=== PATIENT | male | born 1995 | race American Indian/Alaskan Native ===

== ENCOUNTER 2021-11-10 18:56 | Emergency (ER) | payer MEDICAID, MEDICARE ==
[2021-11-10] MEDS ORDERED: ZIPRASIDONE MESYLATE 20 MG VIAL IM ONE ×2 (18:58→23:02)
--- NOTE | 2021-11-10 19:07 | Emergency Department Report ---
ED Psych HPI - General Stated Complaint: PSYCHIATRIC EPISODE Time Seen by Provider: 11/10/21 18:57 - History of Present Illness Initial Comments: Patient is 26 years old male with history of schizophrenia. Patient brought to the emergency room via EMS from [facility] for mental health evaluation. EMS reported that staff reported that patient became agitated and started repeating ONE PHRASE, AM SORRY,AM SORRY. Upon arrival to the ER patient was agitated and obviously responding to internal stimuli. Patient received Geodon 20 mg IM for chemical restraint. MD Complaint: altered mental status -: Sudden, This afternoon Associated Psychiatric Symptoms: racing thoughts History of same: Yes Quality: constant - Related Data Home Medications Medication Instructions Recorded Confirmed Last Taken Benztropine [Cogentin] 1 mg PO HS 06/16/13 06/16/13 06/15/13 Olanzapine [Zyprexa] 10 mg PO QAM 06/16/13 06/16/13 06/16/13 Olanzapine [Zyprexa] 20 mg PO HS 06/16/13 06/16/13 06/15/13 PARoxetine [Paxil] 20 mg DAILY 06/16/13 06/16/13 06/16/13 Vit B12/Levomefolate/Vit B6/B2 1 tab DAILY 06/16/13 06/16/13 06/16/13 [Cerefolin Caplet] clonazePAM [KlonoPIN] 0.5 mg PO BID 06/16/13 06/16/13 06/16/13 Previous Rx's Medication Instructions Recorded Last Taken Type Doxepin [SINEquan] 10 mg PO QHS #30 capsule 11/12/21 Unknown Rx OLANzapine [ZyPREXA] 10 mg PO DAILY #30 tablet 11/12/21 Unknown Rx PARoxetine [Paxil] 10 mg PO DAILY #30 tablet 11/12/21 Unknown Rx Allergies Allergy/AdvReac Type Severity Reaction Status Date / Time No Known Allergies Allergy Verified 06/16/13 15:43 ED Review of Systems ROS: Stated complaint: PSYCHIATRIC EPISODE Other details as noted in HPI Comment: Unobtainable due to pts medical conditions ED Past Medical Hx - Past Medical History Hx Psychiatric Treatment: Yes (schizophrenia/bipolar) - Social History Smoking Status: Never Smoker Substance Use Type: None - Medications Home Medications: Home Medications Medication Instructions Recorded Confirmed Last Taken Type Benztropine [Cogentin] 1 mg PO HS 06/16/13 06/16/13 06/15/13 History Olanzapine [Zyprexa] 10 mg PO QAM 06/16/13 06/16/13 06/16/13 History Olanzapine [Zyprexa] 20 mg PO HS 06/16/13 06/16/13 06/15/13 History PARoxetine [Paxil] 20 mg DAILY 06/16/13 06/16/13 06/16/13 History Vit B12/Levomefolate/Vit B6/B2 1 tab DAILY 06/16/13 06/16/13 06/16/13 History [Cerefolin Caplet] clonazePAM [KlonoPIN] 0.5 mg PO BID 06/16/13 06/16/13 06/16/13 History Doxepin [SINEquan] 10 mg PO QHS #30 capsule 11/12/21 Unknown Rx OLANzapine [ZyPREXA] 10 mg PO DAILY #30 tablet 11/12/21 Unknown Rx PARoxetine [Paxil] 10 mg PO DAILY #30 tablet 11/12/21 Unknown Rx ED Physical Exam - General General appearance: alert, in no apparent distress, other (AGITATED) - Head Head exam: Present: atraumatic, normocephalic, normal inspection - Eye Eye exam: Present: normal appearance - ENT ENT exam: Present: normal exam, normal orophraynx, mucous membranes moist - Neck Neck exam: Present: normal inspection, full ROM. Absent: tenderness, mening ismus - Respiratory Respiratory exam: Present: normal lung sounds bilaterally - Cardiovascular Cardiovascular Exam: Present: regular rate, normal rhythm, normal heart sounds - GI/Abdominal GI/Abdominal exam: Present: soft, normal bowel sounds. Absent: distended, tenderness, guarding, rebound, rigid, organomegaly, mass, bruit, pulsatile mass, hernia - Extremities Exam Extremities exam: Present: normal inspection, full ROM, normal capillary refill. Absent: tenderness - Back Exam Back exam: Present: normal inspection, full ROM. Absent: CVA tenderness (R), CVA tenderness (L) - Neurological Exam Neurological exam: Present: alert - Psychiatric Psychiatric exam: Present: agitated, manic - Skin Skin exam: Present: warm, intact, normal color ED Course Vital Signs 11/10/21 11/10/21 11/11/21 19:43 20:49 06:01 Temperature 97.9 F 97.5 F L Pulse Rate 120 H 103 H Respiratory 16 18 16 Rate Blood Pressure Blood Pressure 157/100 147/83 [Right] O2 Sat by Pulse 99 100 100 Oximetry 11/11/21 11/11/21 11/12/21 08:16 18:29 04:11 Temperature 97.2 F L 97.7 F Pulse Rate 87 80 Respiratory 18 15 16 Rate Blood Pressure 124/85 Blood Pressure 124/85 123/53 [Right] O2 Sat by Pulse 100 100 100 Oximetry 11/12/21 11/12/21 09:29 09:38 Temperature 97.8 F Pulse Rate 87 Respiratory 18 Rate Blood Pressure Blood Pressure 111/73 [Right] O2 Sat by Pulse 97 99 Oximetry ED Medical Decision Making - Lab Data Result diagrams: 11/10/21 20:32 11/10/21 20:32 - Medical Decision Making Patient is 26 years old male with history of schizophrenia. Patient brought to the emergency room via EMS from [facility] for mental health evaluation. EMS reported that staff reported that patient became agitated and started repeating ONE PHRASE, AM SORRY,AM SORRY. Upon arrival to the ER patient was agitated and obviously responding to internal stimuli. Patient received Geodon 20 mg IM for chemical restraint. Patient has been evaluated by our psychiatric team and he spent several days in the ER. Today on November 12 I reexamined the patient again patient stated that he is feeling fine and he is calm. Psychiatric team recommended discharge and outpatient follow-up. Patient denied any suicidal or homicidal ideation. No visual or auditory hallucination. Patient is medically and psychiatrically stable for discharge. Critical care attestation.: If time is entered above; I have spent that time in minutes in the direct care of this critically ill patient, excluding procedure time. ED Disposition Clinical Impression: Acute psychosis Disposition: HOME / SELF CARE / HOMELESS Is pt being admited?: No Condition: Stable Instructions: Schizophrenia Prescriptions: Doxepin [SINEquan] 10 mg PO QHS #30 capsule PARoxetine [Paxil] 10 mg PO DAILY #30 tablet OLANzapine [ZyPREXA] 10 mg PO DAILY #30 tablet
[2021-11-10 20:47] LABS: Basophils # (Auto) 0.1 K/mm3 (0.0-0.1); Basophils % (Auto) 0.8 % (0.0-1.8); Eosinophils % (Auto) 0.2 % (0.0-4.3); Hematocrit 39.7 % (35.5-45.6); Hemoglobin 12.6 gm/dl (11.8-15.2); Lymphocytes # (Auto) 2.5 K/mm3 (1.2-5.4); Lymphocytes % (Auto) 26.3 % (13.4-35.0); Mean Corpuscular HGB Conc 32 % (32-34); Mean Corpuscular Volume 74 fl (84-94); Monocytes # (Auto) 0.7 K/mm3 (0.0-0.8); Monocytes % (Auto) 7.4 % (0.0-7.3); Platelet Count 143 K/mm3 (140-440); Red Blood Count 5.39 M/mm3 (3.65-5.03); Red Cell Distribution Width 14.5 % (13.2-15.2)
[2021-11-10 21:05] LABS: BUN/Creatinine Ratio 10; Blood Urea Nitrogen 10 mg/dL (9-20); Calcium 9.4 mg/dL (8.4-10.2); Hemolysis Index 14
[2021-11-11] MEDS ORDERED: diphenhydrAMINE 50 MG/ML VIAL ONE (02:42)
[2021-11-11] MEDS ORDERED: LORazepam 2 MG/ML VIAL ONE (02:42)
[2021-11-11] MEDS ORDERED: ZIPRASIDONE MESYLATE 20 MG VIAL IM PRN (11:00)
--- NOTE | 2021-11-11 11:34 | Consultation ---
History of Present Illness - Reason for Consult Consult date: 11/11/21 Reason for consult: psychosis - History of Present Psychiatric Illness HPI: Patient is 26 years old male with history of schizophrenia. Patient brought to the emergency room via EMS from [facility] for mental health evaluation. EMS reported that staff reported that patient became agitated and started repeating ONE PHRASE, AM SORRY,AM SORRY. Upon arrival to the ER patient was agitated and obviously responding to internal stimuli. Patient received Geodon 20 mg IM for chemical restraint. The patient was seen today. He is in the seclusion room. He is cooperative during the evaluation. The patient does appear anxious, and is responding to internal stimuli. He says he's been off his meds for about a month. The patient says he takes zyprexa and propranolol. The patient also appears to be confused, as he tells me that his mom brought him hear. It is documented the patient was brought from [facility] by EMS. The patient says he is hearing voices telling him "not to hurt himself." He denies SI/HI but verbalizes "feeling scared." He denies any illicit drug use, alcohol or nicotine. PSYCH HISTORY Diagnoses: Schizophrenia Suicide attempts or Self-harm behavior: No Prior psychiatric hospitalizations: Yes Substance Abuse history: Denies Previous psychiatric medications tried: Zyprexa and propranolol Outpatient treatment: Yes PAST MEDICAL HISTORY: Family Psychiatric History: None reported or documented SOCIAL HISTORY Marital Status: Single Living Arrangements: retirement Employment Status: Unemployed Access to guns/weapons: Denies Education: high school History of Abuse: Denies Legal History: none MENTAL STATUS EXAMINATION General Appearance and Behavior: Age appropriate, good hygiene, wearing appropriate clothes, calm, cooperative, polite Cooperation: Participating Psychomotor Behavior: unremarkable and within normal limits Mood: depressed Affect and affective range: congruent with mood Thought Process: circumstantial, responding to internal stimuli Thought Content: hallucinations Speech: Normal volume, Regular rate and rhythm, Suicidal Ideation: Denies Homicidal Ideation: Denies Hallucinations: Auditory Delusions: None elicited Impulse Control: Limited Insight and Judgment: Limited insight and poor judgment, Memory: Normal Attention: attentive Orientation: Alert, oriented Assessment and Plan (1) Schizophrenia Treatment Plan 1013 Paxil 10mg po daily Zyprexa 10mg po daily Doxepin 10mg po qhs Geodon 20mg IM q5h prn agitation PSYCHOTHERAPY: Supportive psychotherapy provided MEDICAL: Per primary team DELIRIUM PRECAUTIONS: Please re-orient patient frequently, keep lights on during the day, and minimize benzodiazepines and opiates as these medications could worsen patient's confusion. SIZER HAND: Per medical team DISPOSITION: recommend acute psychiatric inpatient treatment. Will follow. Thank you for the consult. Case staffed with Dr. Mckeon Medications and Allergies Allergies Allergy/AdvReac Type Severity Reaction Status Date / Time No Known Allergies Allergy Verified 06/16/13 15:43 Home Medications Medication Instructions Recorded Confirmed Last Taken Type Benztropine [Cogentin] 1 mg PO HS 06/16/13 06/16/13 06/15/13 History Olanzapine [Zyprexa] 10 mg PO QAM 06/16/13 06/16/13 06/16/13 History Olanzapine [Zyprexa] 20 mg PO HS 06/16/13 06/16/13 06/15/13 History PARoxetine [Paxil] 20 mg DAILY 06/16/13 06/16/13 06/16/13 History Vit B12/Levomefolate/Vit B6/B2 1 tab DAILY 06/16/13 06/16/13 06/16/13 History [Cerefolin Caplet] clonazePAM [KlonoPIN] 0.5 mg PO BID 06/16/13 06/16/13 06/16/13 History Mental Status Exam - Vital signs Last Vital Signs Temp 97.2 F L 11/11/21 08:16 Pulse 87 11/11/21 08:16 Resp 18 11/11/21 08:16 BP 124/85 11/11/21 08:16 Pulse Ox 100 11/11/21 08:16 Results Result Diagrams: 11/10/21 20:32 11/10/21 20:32 Abnormal lab results 11/10/21 11/10/21 11/10/21 Range/Units 20:32 20:32 20:32 RBC 5.39 H (3.65-5.03) M/mm3 MCV 74 L (84-94) fl MCH 23 L (28-32) pg Clinton % (Auto) 7.4 H (0.0-7.3) % Glucose 107 H (75-100) mg/dL Salicylates < 0.3 L (2.8-20.0) mg/dL Acetaminophen (10.0-30.0) ug/mL 11/10/21 Range/Units 20:32 RBC (3.65-5.03) M/mm3 MCV (84-94) fl MCH (28-32) pg Clinton % (Auto) (0.0-7.3) % Glucose (75-100) mg/dL Salicylates (2.8-20.0) mg/dL Acetaminophen 5.0 L (10.0-30.0) ug/mL All other labs normal.
[2021-11-11] MEDS: PARoxetine 10 MG TAB PO SCH (12:59)
[2021-11-11] MEDS ORDERED: DOXEPIN 10 MG CAP PO SCH (22:00)
[2021-11-12 09:39] VITALS: BP 111/73
[2021-11-12] MEDS: PARoxetine 10 MG TAB PO SCH (09:43)
--- NOTE | 2021-11-12 11:05 | Progress Note ---
Subjective - Reason for Consult Consult date: 11/12/21 Reason for consult: psychosis - Chief Complaint Chief complaint: The patient was seen today. He is much more calm today. He is cooperative. He says he slept well. The patient says he no longer feels scares or paranoid. He says "I feel better today." He denies SI/HI or hallucinations of any kind. The patient says he lives at a custodial. He says he likes to play soccer. REVIEW OF SYSTEMS Constitutional: Negative for weight loss ENT: Negative for stridor Respiratory: Negative for cough or hemoptysis All other systems reviewed and are negative MENTAL STATUS EXAMINATION General Appearance and Behavior: Age appropriate, good hygiene, wearing appropriate clothes, calm, cooperative, polite Cooperation: Participating Psychomotor Behavior: unremarkable and within normal limits Mood: better Affect and affective range: congruent with mood Thought Process: goal directed Thought Content: None Speech: Normal volume, Regular rate and rhythm, Suicidal Ideation: Denies Homicidal Ideation: Denies Hallucinations: Denies Delusions: None elicited Impulse Control: Limited Insight and Judgment: Limited insight and poor judgment, Memory: Normal Attention: attentive Orientation: Alert, oriented Assessment and Plan (1) Schizophrenia Treatment Plan d/c 1013 Paxil 10mg po daily Zyprexa 10mg po daily Doxepin 10mg po qhs PSYCHOTHERAPY: Supportive psychotherapy provided MEDICAL: Per primary team DELIRIUM PRECAUTIONS: Please re-orient patient frequently, keep lights on during the day, and minimize benzodiazepines and opiates as these medications could worsen patient's confusion. 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 The patient understands that if SI/HI are to arise he is to seek immediate assistance [employer] to give all necessary resources Will sign off. Thank you for the consult. Case staffed with Dr. Mckeon Mental Status Exam - Vital signs Last Vital Signs Temp 97.8 F 11/12/21 09:38 Pulse 87 11/12/21 09:38 Resp 18 11/12/21 09:38 BP 111/73 11/12/21 09:38 Pulse Ox 99 11/12/21 09:38
== END 2021-11-12 14:59 | disposition home or self-care (01) ==
LOC: ED 18:56 → EEVIPCON 18:56 → ED 11-12 14:59
DX: F23 Brief psychotic disorder (principal); F31.9 Bipolar disorder, unspecified
CPT/HCPCS: 36415; 80048; 85025; 96372; 99284; J1200; J2060; J3486; 80320; G0480

== ENCOUNTER 2021-11-14 19:52 | Emergency (ER) | payer MEDICAID ==
--- NOTE | 2021-11-14 20:58 | Emergency Department Report ---
HPI - HPI HPI: Room 12 C The patient is a 26-year-old male present with a chief complaint of schizophrenia. The patient states he came to the emergency department to have his schizophrenia evaluated. Patient denies have any specific complaints. Patient states he has been compliant with his medication. Patient denies suicidal or homicidal ideation. Patient denies visual auditory hallucinations <BRANDAN RIVERA - Last Filed: 11/14/21 22:35> <SONALI PHILLIPS - Last Filed: 11/15/21 08:04> - General Chief Complaint: Psych Time Seen by Provider: 11/14/21 20:44 ED Past Medical Hx - Past Medical History Previous Medical History?: Yes Hx Psychiatric Treatment: Yes (schizophrenia/bipolar) - Surgical History Past Surgical History?: No - Family History Family history: no significant - Social History Smoking Status: Never Smoker Substance Use Type: None (Denies illicit drug), Alcohol (Frequently) <BRANDAN RIVERA - Last Filed: 11/14/21 22:35> <SONALI PHILLIPS - Last Filed: 11/15/21 08:04> - Medications Home Medications: Home Medications Medication Instructions Recorded Confirmed Last Taken Type Benztropine [Cogentin] 1 mg PO HS 06/16/13 06/16/13 06/15/13 History Olanzapine [Zyprexa] 10 mg PO QAM 06/16/13 06/16/13 06/16/13 History Olanzapine [Zyprexa] 20 mg PO HS 06/16/13 06/16/13 06/15/13 History PARoxetine [Paxil] 20 mg DAILY 06/16/13 06/16/13 06/16/13 History Vit B12/Levomefolate/Vit B6/B2 1 tab DAILY 06/16/13 06/16/13 06/16/13 History [Cerefolin Caplet] clonazePAM [KlonoPIN] 0.5 mg PO BID 06/16/13 06/16/13 06/16/13 History Doxepin [SINEquan] 10 mg PO QHS #30 capsule 11/12/21 Unknown Rx OLANzapine [ZyPREXA] 10 mg PO DAILY #30 tablet 11/12/21 Unknown Rx PARoxetine [Paxil] 10 mg PO DAILY #30 tablet 11/12/21 Unknown Rx ED Review of Systems ROS: Stated complaint: METAL BREAKDOWN Other details as noted in HPI Constitutional: no symptoms reported Eyes: denies: eye pain ENT: denies: throat pain Respiratory: no symptoms reported Cardiovascular: denies: chest pain Endocrine: no symptoms reported Gastrointestinal: denies: abdominal pain Genitourinary: denies: dysuria Musculoskeletal: denies: back pain Neurological: denies: headache Psychiatric: denies: auditory hallucinations, visual hallucinations, homicidal thoughts, suicidal thoughts <BRANDAN RIVERA - Last Filed: 11/14/21 22:35> ROS: Stated complaint: METAL BREAKDOWN Other details as noted in HPI <SONALI PHILLIPS - Last Filed: 11/15/21 08:04> Physical Exam - Physical Exam Vital Signs: Vital Signs 11/14/21 20:07 Temperature 98 F Pulse Rate 105 H Respiratory 18 Rate Blood Pressure 140/90 O2 Sat by Pulse 100 Oximetry Physical Exam: GENERAL: The patient is well-developed well-nourished male sitting in chair eating food not appearing to be in acute distress. [] HEENT: Normocephalic. Atraumatic. Extraocular motions are intact. Patient has moist mucous membranes. NECK: Supple. Trachea midline CHEST/LUNGS: Clear to auscultation. There is no respiratory distress noted. HEART/CARDIOVASCULAR: Regular. There is no tachycardia. There is no gallop rub or murmur. ABDOMEN: Abdomen is soft, nontender. Patient has normal bowel sounds. There is no abdominal distention. SKIN: There is no rash. There is no edema. There is no diaphoresis. NEURO: The patient is awake, alert, and oriented. The patient is cooperative. The patient has no focal neurologic deficits. The patient has normal speech. GCS 15 MUSCULOSKELETAL: There is no evidence of acute injury. <BRANDAN RIVERA - Last Filed: 11/14/21 22:35> - Physical Exam Vital Signs: Vital Signs 11/14/21 20:07 Temperature 98 F Pulse Rate 105 H Respiratory 18 Rate Blood Pressure 140/90 O2 Sat by Pulse 100 Oximetry <SONALI PHILLIPS - Last Filed: 11/15/21 08:04> ED Course Vital Signs 11/14/21 20:07 Temperature 98 F Pulse Rate 105 H Respiratory 18 Rate Blood Pressure 140/90 O2 Sat by Pulse 100 Oximetry - Reevaluation(s) Reevaluation #1: 11/14/21 22:35 Patient refusing labs <BRANDAN RIVERA - Last Filed: 11/14/21 22:35> Vital Signs 11/14/21 20:07 Temperature 98 F Pulse Rate 105 H Respiratory 18 Rate Blood Pressure 140/90 O2 Sat by Pulse 100 Oximetry <SONALI PHILLIPS - Last Filed: 11/15/21 08:04> ED Medical Decision Making - Differential Diagnosis Schizophrenia <BRANDAN RIVERA - Last Filed: 11/14/21 22:35> - Medical Decision Making Patient has been evaluated by our psychiatric team. Patient recommended for ou tpatient follow-up and discharge. Patient is currently denying any suicidal or homicidal ideation. No visual or auditory hallucination. Patient is medically and psychiatrically stable for discharge. <SONALI PHILLIPS - Last Filed: 11/15/21 08:04> Critical care attestation.: If time is entered above; I have spent that time in minutes in the direct care o f this critically ill patient, excluding procedure time. <BRANDAN RIVERA - Last Filed: 11/14/21 22:35> Critical care attestation.: If time is entered above; I have spent that time in minutes in the direct care of this critically ill patient, excluding procedure time. <SONALI PHILLISP - Last Filed: 11/15/21 08:04> ED Disposition <BRANDAN RIVERA - Last Filed: 11/14/21 22:35> Is pt being admited?: No <SONALI PHILLIPS - Last Filed: 11/15/21 08:04> Clinical Impression: Schizophrenia Disposition: 01 HOME / SELF CARE / HOMELESS Condition: Stable Instructions: Schizophrenia Referrals: LIZ LARSON MD [Primary Care Provider] - 3-5 Days
[2021-11-15 08:33] VITALS: BP 138/86
== END 2021-11-15 08:44 | disposition home or self-care (01) ==
LOC: ED 19:52
DX: F20.9 Schizophrenia, unspecified (principal)
CPT/HCPCS: 99283

== ENCOUNTER 2021-11-15 12:21 | Emergency (ER) | payer MEDICAID ==
[2021-11-15] MEDS ORDERED: ZIPRASIDONE MESYLATE 20 MG VIAL IM ONE ×2 (12:32→20:55)
--- NOTE | 2021-11-15 12:38 | Emergency Department Report ---
ED Psych HPI - General Stated Complaint: MH Time Seen by Provider: 11/15/21 12:32 - History of Present Illness Initial Comments: Patient is 26 years old male with known history of schizophrenia. Patient was just released from emergency room after has been evaluated by our psychiatric team and recommended discharge. Patient was fine this morning and soon as he woke the hospital premises patient started yelling and shouting phrases" AM REALLY SORRY, AM REALLY SORRY. Similar to his previous presentation. Patient became very agitated and have to be physically restrained and then received Geodon 20 mg IM and brought in seclusion. Complaint: altered mental status - Related Data Home Medications Medication Instructions Recorded Confirmed Last Taken Benztropine [Cogentin] 1 mg PO HS 06/16/13 11/16/21 06/15/13 Olanzapine [Zyprexa] 10 mg PO QAM 06/16/13 11/16/21 06/16/13 Olanzapine [Zyprexa] 20 mg PO HS 06/16/13 11/16/21 11/07/21 PARoxetine [Paxil] 20 mg DAILY 06/16/13 11/16/21 06/16/13 Vit B12/Levomefolate/Vit B6/B2 1 tab DAILY 06/16/13 11/16/21 06/16/13 [Cerefolin Caplet] clonazePAM [KlonoPIN] 0.5 mg PO BID 06/16/13 11/16/21 06/16/13 Clozapine 800 mg PO QHS 11/16/21 11/16/21 11/14/21 800 mg Depakote ER 1,750 mg PO QHS 11/16/21 11/16/21 11/07/21 Previous Rx's Medication Instructions Recorded Last Taken Type Doxepin [SINEquan] 10 mg PO QHS #30 capsule 11/12/21 Unknown Rx OLANzapine [ZyPREXA] 10 mg PO DAILY #30 tablet 11/12/21 Unknown Rx PARoxetine [Paxil] 10 mg PO DAILY #30 tablet 11/12/21 Unknown Rx Allergies Allergy/AdvReac Type Severity Reaction Status Date / Time No Known Allergies Allergy Verified 06/16/13 15:43 ED Review of Systems ROS: Stated complaint: MH Other details as noted in HPI Comment: Unobtainable due to pts medical conditions ED Past Medical Hx - Past Medical History Hx Psychiatric Treatment: Yes (schizophrenia/bipolar) - Social History Smoking Status: Never Smoker Substance Use Type: None (Denies illicit drug), Alcohol (Frequently) - Medications Home Medications: Home Medications Medication Instructions Recorded Confirmed Last Taken Type Benztropine [Cogentin] 1 mg PO HS 06/16/13 11/16/21 06/15/13 History Olanzapine [Zyprexa] 10 mg PO QAM 06/16/13 11/16/21 06/16/13 History Olanzapine [Zyprexa] 20 mg PO HS 06/16/13 11/16/21 11/07/21 History PARoxetine [Paxil] 20 mg DAILY 06/16/13 11/16/21 06/16/13 History Vit B12/Levomefolate/Vit B6/B2 1 tab DAILY 06/16/13 11/16/21 06/16/13 History [Cerefolin Caplet] clonazePAM [KlonoPIN] 0.5 mg PO BID 06/16/13 11/16/21 06/16/13 History Doxepin [SINEquan] 10 mg PO QHS #30 capsule 11/12/21 11/16/21 Unknown Rx OLANzapine [ZyPREXA] 10 mg PO DAILY #30 tablet 11/12/21 11/16/21 Unknown Rx PARoxetine [Paxil] 10 mg PO DAILY #30 tablet 11/12/21 11/16/21 Unknown Rx Clozapine 800 mg PO QHS 11/16/21 11/16/21 11/14/21 History 800 mg Depakote ER 1,750 mg PO QHS 11/16/21 11/16/21 11/07/21 History ED Physical Exam - General General appearance: alert, other (Severely agitated.) - Head Head exam: Present: atraumatic, normocephalic, normal inspection - Eye Eye exam: Present: normal appearance - ENT ENT exam: Present: normal exam, normal orophraynx, mucous membranes moist - Neck Neck exam: Present: normal inspection, full ROM. Absent: tenderness, meningismus - Respiratory Respiratory exam: Present: normal lung sounds bilaterally - Cardiovascular Cardiovascular Exam: Present: regular rate, normal rhythm, normal heart sounds - GI/Abdominal GI/Abdominal exam: Present: soft, normal bowel sounds. Absent: distended, tenderness, guarding, rebound, rigid, organomegaly, mass, bruit, pulsatile mass, hernia - Back Exam Back exam: Present: normal inspection, full ROM. Absent: CVA tenderness (R), CVA tenderness (L) - Neurological Exam Neurological exam: Present: alert, altered, CN II-XII intact, normal gait, reflexes normal. Absent: motor sensory deficit - Psychiatric Psychiatric exam: Present: agitated, manic - Skin Skin exam: Present: warm, intact, normal color ED Course Vital Signs 11/16/21 11/16/21 11/16/21 12:26 12:33 19:58 Temperature 97.8 F Pulse Rate 109 H Respiratory 18 Rate Blood Pressure 130/84 [Left] O2 Sat by Pulse 97 100 99 Oximetry 11/17/21 11/17/21 11/17/21 09:00 13:05 20:49 Temperature 98.3 F Pulse Rate 108 H 117 H Respiratory 18 18 18 Rate Blood Pressure 149/90 140/89 [Left] O2 Sat by Pulse 100 99 99 Oximetry 11/17/21 11/18/21 11/19/21 21:00 11:23 04:02 Temperature 98.2 F Pulse Rate 92 H Respiratory 20 16 Rate Blood Pressure 134/79 [Left] O2 Sat by Pulse 98 98 100 Oximetry 11/19/21 09:07 Temperature 97.7 F Pulse Rate 84 Respiratory 17 Rate Blood Pressure 142/88 [Left] O2 Sat by Pulse 100 Oximetry ED Medical Decision Making - Lab Data Result diagrams: 11/15/21 12:32 11/15/21 12:32 Critical care attestation.: If time is entered above; I have spent that time in minutes in the direct care of this critically ill patient, excluding procedure time. ED Disposition Clinical Impression: Schizophrenia Disposition: 01 HOME / SELF CARE / HOMELESS Is pt being admited?: No Condition: Stable Instructions: Schizophrenia Additional Instructions: Professional and Agency Contacts To help Resolve Crises(25/01) [place] Crisis Line: 1-643-223-946 Suicide Prevention Line: Crisis Text Line: [place] [address] Emergency: 911 Outpatient COMMUNITY Behavioral Health Resources: [place]: [facility] [address] [place], [place] [address] [facility] [address] [place] [address] [place]: [facility] - [address] [place] [address] Wednesday thru Wednesday - 8am - 5pm [place]: [facility] Address: [address], [place] [address] [place]: [facility] Address: [address] [place], [place] [address] Wednesday thru Wednesday- 7am-2pm [facility] Address: [address] [place], [place] [address] Wednesday thru Wednesday: 8:30AM-5PM Referrals: PRIMARY CAREMD [Primary Care Provider] - 3-5 Days
[2021-11-16] MEDS ORDERED: LORazepam 2 MG/ML VIAL IV ONE (06:40)
[2021-11-16] MEDS ORDERED: HALOPERIDOL LACTATE 5 MG/1 ML INJ IM ONE (06:40)
[2021-11-16] MEDS ORDERED: diphenhydrAMINE 50 MG/ML VIAL IV ONE (06:42)
--- NOTE | 2021-11-16 10:54 | Consultation ---
History of Present Illness - Reason for Consult Consult date: 11/16/21 Reason for consult: Agitation - History of Present Psychiatric Illness The patient is a 26 year old male with history of schizophrenia who was readmitted for agitation. In my encounter with the patient, he presents with disorganized thoughts and flight of ideas. PAST PSYCHIATRIC HISTORY: PAST MEDICAL HISTORY: None reported or document Family Psychiatric History: None reported or documented SOCIAL HISTORY REVIEW OF SYSTEMS Constitutional: Negative for weight loss ENT: Negative for stridor Respiratory: Negative for cough or hemoptysis All other systems reviewed and are negative MENTAL STATUS EXAMINATION Diagnoses: Schizophrenia Treatment Plan Continue Zyprexa 10mg po bid PSYCHOTHERAPY: Supportive psychotherapy provided MEDICAL: Per primary team DELIRIUM PRECAUTIONS: Please re-orient patient frequently, keep lights on during the day, and minimize benzodiazepines and opiates as these medications could worsen patient's confusion. 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 Will follow. Thank you for the consult. Case staffed with Dr. Mckeon Medications and Allergies Medications and Allergies Medications and Allergies Allergies Allergy/AdvReac Type Severity Reaction Status Date / Time No Known Allergies Allergy Verified 06/16/13 15:43 Home Medications Medication Instructions Recorded Confirmed Last Taken Type Benztropine [Cogentin] 1 mg PO HS 06/16/13 11/16/21 06/15/13 History Olanzapine [Zyprexa] 10 mg PO QAM 06/16/13 11/16/21 06/16/13 History Olanzapine [Zyprexa] 20 mg PO HS 06/16/13 11/16/21 11/07/21 History PARoxetine [Paxil] 20 mg DAILY 06/16/13 11/16/21 06/16/13 History Vit B12/Levomefolate/Vit B6/B2 1 tab DAILY 06/16/13 11/16/21 06/16/13 History [Cerefolin Caplet] clonazePAM [KlonoPIN] 0.5 mg PO BID 06/16/13 11/16/21 06/16/13 History Doxepin [SINEquan] 10 mg PO QHS #30 capsule 11/12/21 11/16/21 Unknown Rx OLANzapine [ZyPREXA] 10 mg PO DAILY #30 tablet 11/12/21 11/16/21 Unknown Rx PARoxetine [Paxil] 10 mg PO DAILY #30 tablet 11/12/21 11/16/21 Unknown Rx Clozapine 800 mg PO QHS 11/16/21 11/16/21 11/14/21 History 800 mg Depakote ER 1,750 mg PO QHS 11/16/21 11/16/21 11/07/21 History Results All other labs normal.
--- NOTE | 2021-11-16 12:01 | Event Note ---
Date: 11/16/21 Diagnoses: Schizophrenia Treatment Plan Continue Zyprexa 10mg po bid PSYCHOTHERAPY: Supportive psychotherapy provided MEDICAL: Per primary team DELIRIUM PRECAUTIONS: Please re-orient patient frequently, keep lights on during the day, and minimize benzodiazepines and opiates as these medications could worsen patient's confusion. 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 Will follow. Thank you for the consult. Case staffed with Dr. Mckeon I Have seen the patient myself and patient remains hemodynamically stable and afebrile; appreciate psychiatry's recommendation. Torie WOLF
[2021-11-17] MEDS ORDERED: ZIPRASIDONE MESYLATE 20 MG VIAL IM NR (08:41)
[2021-11-17] MEDS ORDERED: ZIPRASIDONE MESYLATE 20 MG VIAL IM PRN (11:00)
--- NOTE | 2021-11-17 11:22 | Progress Note ---
Subjective - Reason for Consult Consult date: 11/17/21 Reason for consult: psychosis - Chief Complaint Chief complaint: The patient was seen today. The continues to be disorganized and responding to internal stimuli. REVIEW OF SYSTEMS MENTAL STATUS EXAMINATION Diagnoses: (1)Bipolar disorder Treatment Plan 1013 Continue home meds Haldol 5mg IM BID PSYCHOTHERAPY: Supportive psychotherapy provided MEDICAL: Per primary team DELIRIUM PRECAUTIONS: Please re-orient patient frequently, keep lights on during the day, and minimize benzodiazepines and opiates as these medications could worsen patient's confusion. 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 Will follow. Thank you for the consult. Case staffed with Dr. Mckeon Medications and Allergies Medications and Allergies Mental Status Exam Mental Status Exam - Vital signs Last Vital Signs Temp 97.8 F 11/16/21 19:58 Pulse 109 H 11/16/21 19:58 Resp 18 11/16/21 19:58 BP 130/84 11/16/21 19:58 Pulse Ox 99 11/16/21 19:58
--- NOTE | 2021-11-17 11:43 | Emergency Department Report ---
Blank Doc - Documentation Documentation: S: Patient reportedly agitated and pacing this morning requiring Geodon. O: Vital Signs - 8 hr 11/17/21 11/17/21 09:00 13:05 Pulse Rate 108 H Respiratory 18 18 Rate Blood Pressure 149/90 [Left] O2 Sat by Pulse 100 99 Oximetry 8: Bipolar disorder PE: 1013/awaiting inpatient psych
[2021-11-17 13:39] LABS: Basophils # (Auto) 0.1 K/mm3 (0.0-0.1); Basophils % (Auto) 0.7 % (0.0-1.8); Eosinophils % (Auto) 0.5 % (0.0-4.3); Hematocrit 38.8 % (35.5-45.6); Hemoglobin 12.3 gm/dl (11.8-15.2); Lymphocytes # (Auto) 2.1 K/mm3 (1.2-5.4); Lymphocytes % (Auto) 24.9 % (13.4-35.0); Mean Corpuscular HGB Conc 32 % (32-34); Mean Corpuscular Volume 73 fl (84-94); Monocytes # (Auto) 1.2 K/mm3 (0.0-0.8); Platelet Count 160 K/mm3 (140-440); Red Cell Distribution Width 15.2 % (13.2-15.2)
[2021-11-17 13:51] LABS: BUN/Creatinine Ratio 19; Blood Urea Nitrogen 17 mg/dL (9-20); Calcium 9.6 mg/dL (8.4-10.2); Hemolysis Index 4
[2021-11-17] MEDS ORDERED: clonazePAM 0.5 MG TAB PO SCH (22:00)
[2021-11-17] MEDS ORDERED: DIVALPROEX DR 500 MG TAB PO SCH (22:00)
[2021-11-17] MEDS ORDERED: HALOPERIDOL LACTATE 5 MG/1 ML INJ IM SCH (22:00)
[2021-11-18] MEDS: BENZTROPINE 1 MG TAB PO SCH ×2 (05:53→22:00)
[2021-11-18] MEDS: DOXEPIN 10 MG CAP PO SCH ×2 (05:53→22:00)
[2021-11-18] MEDS: clonazePAM 0.5 MG TAB PO SCH ×3 (05:53→22:00)
[2021-11-18] MEDS: DIVALPROEX DR 500 MG TAB PO SCH ×3 (05:53→22:00)
--- NOTE | 2021-11-18 12:54 | Emergency Department Report ---
Blank Doc - Documentation Documentation: S: Patient pacing otherwise no events reported overnight O: Vital Signs - 8 hr 11/18/21 11:23 Temperature 98.2 F Pulse Rate 92 H Respiratory 20 Rate Blood Pressure 134/79 [Left] O2 Sat by Pulse 98 Oximetry A: Bipolar disorder PE: 1013/awaiting inpatient psych
[2021-11-19 09:09] VITALS: BP 142/88
--- NOTE | 2021-11-19 09:12 | Progress Note ---
Subjective - Reason for Consult Consult date: 11/19/21 Reason for consult: Schizophrenia - Chief Complaint Chief complaint: The patient was seen today. The is calm and eating breakfast. Spoke with patient's mother Mrs Kenny Hurt @ [phone] who is in agreement to discharge the patient since Clozaril is non formulary and can be given at the skilled nursing under the care of his psychiatrist. REVIEW OF SYSTEMS MENTAL STATUS EXAMINATION Diagnoses: (1)Bipolar disorder Treatment Plan [id number] Continue home meds PSYCHOTHERAPY: Supportive psychotherapy provided MEDICAL: Per primary team DELIRIUM PRECAUTIONS: Please re-orient patient frequently, keep lights on during the day, and minimize benzodiazepines and opiates as these medications could worsen patient's confusion. 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 Will sign off. Thank you for the consult. Case staffed with Dr. Mckeon Medications and Allergies Medications and Allergies Mental Status Exam Mental Status Exam - Vital signs Last Vital Signs Temp 98.2 F 11/18/21 11:23 Pulse 92 H 11/18/21 11:23 Resp 16 11/19/21 04:02 BP 134/79 11/18/21 11:23 Pulse Ox 100 11/19/21 04:02
[2021-11-19] MEDS: DIVALPROEX DR 500 MG TAB PO SCH (10:05)
[2021-11-19] MEDS: clonazePAM 0.5 MG TAB PO SCH (10:05)
--- NOTE | 2021-11-19 16:17 | Event Note ---
Date: 11/19/21 (12:00) S: no issues overnight; no new complaints this morning. Patient [id number] a few days ago with acute psychosis. Has a hx of Schizophrenia. Was seen by psych today who recommend discharging home. O: Gen: in nad, awake, alert HEENT: MMM; airway patent Resp: good air entry, nml I:E, CTAB, no use of ZAKI Heart: RRR; no rub or gallop Ext: no LE edema; non tender calvesw; Psych: nml affect; denies SI, HI A/P: - schizophrenia - dc home on his home to continue his clozapine per psych. ED Disposition Disposition: HOME / SELF CARE / HOMELESS Is pt being admited?: No Does the pt Need Aspirin: No Condition: Stable Additional Instructions: Professional and Agency Contacts To help Resolve Crises(25/01) [place] Crisis Line: 7-459-311-693 Suicide Prevention Line: Crisis Text Line: Text START to 561798 Emergency: 911 Outpatient COMMUNITY Behavioral Health Resources: [facility]: [facility] [address] [place], [place] [address] [facility] [address] [place] [address] SUPPLY: [facility] - [address] [place] [address] Wednesday thru Wednesday - 8am - 5pm [facility] Address: [address] [place] [address] [facility]: [facility] Address: [address] [place] [address] Wednesday thru Wednesday- 7am-2pm [facility] Address: [address] [place] [address] Wednesday thru Wednesday: 8:30AM-5PM Referrals: PRIMARY CARE, [Primary Care Provider] - 3-5 Days Time of Disposition: 16:17
== END 2021-11-19 17:38 | disposition home or self-care (01) ==
LOC: ED 12:21
DX: R41.82 Altered mental status, unspecified (principal); F20.9 Schizophrenia, unspecified; Z20.822 Contact with and (suspected) exposure to COVID-19
CPT/HCPCS: 36415; 80048; 85025; 96372; 96374; 99284; J1630; J2060; J3486; U0003; 80320; 99283; G0480

== ENCOUNTER 2021-11-25 12:39 | Emergency (ER) | payer MEDICAID ==
[2021-11-25] MEDS ORDERED: diphenhydrAMINE 50 MG/ML VIAL ONE (12:58)
[2021-11-25] MEDS ORDERED: LORazepam 2 MG/ML VIAL ONE (12:58)
[2021-11-25] MEDS ORDERED: HALOPERIDOL LACTATE 5 MG/1 ML INJ ONE (12:58)
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
[2021-11-25] MEDS ORDERED: diphenhydrAMINE 50 MG/ML VIAL IM ONE (13:30)
[2021-11-25] MEDS ORDERED: HALOPERIDOL LACTATE 5 MG/1 ML INJ IM ONE (13:30)
[2021-11-25] MEDS ORDERED: LORazepam 2 MG/ML VIAL IM ONE (13:30)
[2021-11-25 14:05] LABS: Basophils % (Auto) 0.5 % (0.0-1.8); Eosinophils % (Auto) 0.2 % (0.0-4.3); Hematocrit 37.1 % (35.5-45.6); Hemoglobin 11.6 gm/dl (11.8-15.2); Lymphocytes # (Auto) 0.9 K/mm3 (1.2-5.4); Lymphocytes % (Auto) 13.9 % (13.4-35.0); Mean Corpuscular HGB Conc 31 % (32-34); Mean Corpuscular Volume 73 fl (84-94); Monocytes # (Auto) 0.6 K/mm3 (0.0-0.8); Monocytes % (Auto) 8.3 % (0.0-7.3); Platelet Count 226 K/mm3 (140-440); Red Blood Count 5.05 M/mm3 (3.65-5.03); Red Cell Distribution Width 15.2 % (13.2-15.2)
[2021-11-25 14:34] LABS: Alanine Aminotransferase 25 units/L (7-56); Albumin 4.6 g/dL (3.9-5); BUN/Creatinine Ratio 11; Blood Urea Nitrogen 10 mg/dL (9-20); Calcium 9.1 mg/dL (8.4-10.2); Hemolysis Index 7
[2021-11-25] MEDS: LORazepam 2 MG/ML VIAL IV PRN (15:00)
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
[2021-11-25 16:28] LABS: Bacteria,Urine 1+ /HPF (Negative); Bilirubin,Urine NEG (Negative); Blood,Urine NEG (Negative); Color,Urine Yellow (Yellow); Protein,Urine <15 mg/dL mg/dL (Negative); Urobilinogen,Urine < 2.0 mg/dL (<2.0)
[2021-11-25 16:41] LABS: Amphetamine Screen,Urine Negative; Benzodiazepines Screen,Urine Negative; Cannabinoid Screen,Urine Negative; Cocaine Screen,Urine Negative; Methadone Screen,Urine Negative; Opiate Screen,Urine Negative
[2021-11-25] MEDS ORDERED: FLUCONAZOLE 200 MG TAB PO ONE (16:48)
--- NOTE | 2021-11-26 12:49 | Event Note ---
Date: 11/26/21 The patient was evaluated in the emergency department for symptoms described in the history of present illness. He/she was evaluated in the context of the global COVID-19 pandemic, which necessitated consideration that the patient might be at risk for infection with the virus that causes COVID-19. Institutional protocols and algorithms that pertain to the evaluation of patients at risk for COVID-19 are in a state of rapid change based on information released by regulatory bodies including the CDC and federal and state organizations. These policies and algorithms were followed during the patient's care in the emergency department. Please note that these policies, procedures and recommendations changed on a rapid basis. Laboratory studies, vital signs, nursing documentation, ER documentation, and psychiatric documentation are reviewed and appreciated. Nursing team reports no acute events this morning or concerns. The patient is awake and not in any acute distress. The patient was deemed medically suitable for psychiatric disposition and placement during his initial ER evaluation. The patient continues to remain medically suitable for psychiatric placement and disposition. He is currently pending psychiatric placement. Vital Signs 11/25/21 11/25/21 11/25/21 12:48 13:04 13:36 Temperature 98.1 F 98.3 F 98.8 F Pulse Rate 100 H 88 Respiratory 16 18 18 Rate Blood Pressure Blood Pressure 138/88 [Left] Blood Pressure 138/83 [Right] O2 Sat by Pulse 100 99 100 Oximetry 11/25/21 11/25/21 11/25/21 13:46 14:00 14:18 Temperature Pulse Rate 95 H 101 H Respiratory 21 21 Rate Blood Pressure 132/80 125/84 134/85 Blood Pressure [Left] Blood Pressure [Right] O2 Sat by Pulse 100 78 L Oximetry 11/25/21 11/25/21 11/26/21 14:36 18:15 10:05 Temperature 98.1 F 97.2 F L Pulse Rate 94 H 89 Respiratory 16 18 Rate Blood Pressure 144/85 Blood Pressure [Left] Blood Pressure 125/76 134/83 [Right] O2 Sat by Pulse 98 97 Oximetry Lab Results 11/25/21 11/25/21 11/25/21 Range/Units 13:39 13:39 13:39 WBC 6.8 (4.5-11.0) K/mm3 RBC 5.05 H (3.65-5.03) M/mm3 Hgb 11.6 L (11.8-15.2) gm/dl Hct 37.1 (35.5-45.6) % MCV 73 L (84-94) fl MCH 23 L (28-32) pg MCHC 31 L (32-34) % RDW 15.2 (13.2-15.2) % Plt Count 226 (140-440) K/mm3 Lymph % (Auto) 13.9 (13.4-35.0) % [place] % (Auto) 8.3 H (0.0-7.3) % Eos % (Auto) 0.2 (0.0-4.3) % Baso % (Auto) 0.5 (0.0-1.8) % Lymph # (Auto) 0.9 L (1.2-5.4) K/mm3 Storey # (Auto) 0.6 (0.0-0.8) K/mm3 Eos # (Auto) 0.0 (0.0-0.4) K/mm3 Baso # (Auto) 0.0 (0.0-0.1) K/mm3 Seg Neutrophils % 77.1 H (40.0-70.0) % Seg Neutrophils # 5.2 (1.8-7.7) K/mm3 Sodium 141 (137-145) mmol/L Potassium 3.7 (3.6-5.0) mmol/L Chloride 105.9 (98-107) mmol/L Carbon Dioxide 24 (22-30) mmol/L Anion Gap 15 mmol/L BUN 10 (9-20) mg/dL Creatinine 0.9 (0.8-1.3) mg/dL Estimated GFR > 60 ml/min BUN/Creatinine Ratio 11 % Glucose 94 (75-100) mg/dL Calcium 9.1 (8.4-10.2) mg/dL Total Bilirubin 0.40 (0.1-1.2) mg/dL AST 24 (5-40) units/L ALT 25 (7-56) units/L Alkaline Phosphatase 67 (35-129) units/L Total Protein 7.0 (6.3-8.2) g/dL Albumin 4.6 (3.9-5) g/dL Albumin/Globulin Ratio 1.9 % Urine Color (Yellow) Urine Turbidity (Clear) Urine pH (5.0-7.0) Ur Specific [place] (1.003-1.030) Urine Protein (Negative) mg/dL Urine Glucose (UA) (Negative) mg/dL Urine Ketones (Negative) mg/dL Urine Blood (Negative) Urine Nitrite (Negative) Urine Bilirubin (Negative) Urine Urobilinogen (<2.0) mg/dL Ur Leukocyte Esterase (Negative) Urine WBC (Auto) (0.0-6.0) /HPF Urine RBC (Auto) (0.0-6.0) /HPF Urine Bacteria (Auto) (Negative) /HPF Urine Yeast (Budding) /HPF Salicylates < 0.3 L (2.8-20.0) mg/dL Urine Opiates Screen Urine Methadone Screen Acetaminophen (10.0-30.0) ug/mL Ur Barbiturates Screen Valproic Acid 74.6 (50-100) ug/mL Ur Phencyclidine Scrn Ur Amphetamines Screen U Benzodiazepines Scrn Urine Cocaine Screen U Marijuana (THC) Screen Drugs of Abuse Note Plasma/Serum Alcohol (0-0.07) % SARS-CoV-2 (PCR) (Negative) 11/25/21 11/25/21 11/25/21 Range/Units 13:39 13:39 Unknown WBC (4.5-11.0) K/mm3 RBC (3.65-5.03) M/mm3 Hgb (11.8-15.2) gm/dl Hct (35.5-45.6) % MCV (84-94) fl MCH (28-32) pg MCHC (32-34) % RDW (13.2-15.2) % Plt Count (140-440) K/mm3 Lymph % (Auto) (13.4-35.0) % Storey % (Auto) (0.0-7.3) % Eos % (Auto) (0.0-4.3) % Baso % (Auto) (0.0-1.8) % Lymph # (Auto) (1.2-5.4) K/mm3 Storey # (Auto) (0.0-0.8) K/mm3 Eos # (Auto) (0.0-0.4) K/mm3 Baso # (Auto) (0.0-0.1) K/mm3 Seg Neutrophils % (40.0-70.0) % Seg Neutrophils # (1.8-7.7) K/mm3 Sodium (137-145) mmol/L Potassium (3.6-5.0) mmol/L Chloride (98-107) mmol/L Carbon Dioxide (22-30) mmol/L Anion Gap mmol/L BUN (9-20) mg/dL Creatinine (0.8-1.3) mg/dL Estimated GFR ml/min BUN/Creatinine Ratio % Glucose (75-100) mg/dL Calcium (8.4-10.2) mg/dL Total Bilirubin (0.1-1.2) mg/dL AST (5-40) units/L ALT (7-56) units/L Alkaline Phosphatase (35-129) units/L Total Protein (6.3-8.2) g/dL Albumin (3.9-5) g/dL Albumin/Globulin Ratio % Urine Color Yellow (Yellow) Urine Turbidity Slightly-cloudy (Clear) Urine pH 8.0 H (5.0-7.0) Ur Specific [place] 1.013 (1.003-1.030) Urine Protein <15 mg/dl (Negative) mg/dL Urine Glucose (UA) Neg (Negative) mg/dL Urine Ketones Tr (Negative) mg/dL Urine Blood Neg (Negative) Urine Nitrite Neg (Negative) Urine Bilirubin Neg (Negative) Urine Urobilinogen < 2.0 (<2.0) mg/dL Ur Leukocyte Esterase Neg (Negative) Urine WBC (Auto) 5.0 (0.0-6.0) /HPF Urine RBC (Auto) 19.0 (0.0-6.0) /HPF Urine Bacteria (Auto) 1+ (Negative) /HPF Urine Yeast (Budding) 2+ /HPF Salicylates (2.8-20.0) mg/dL Urine Opiates Screen Urine Methadone Screen Acetaminophen 5.0 L (10.0-30.0) ug/mL Ur Barbiturates Screen Valproic Acid (50-100) ug/mL Ur Phencyclidine Scrn Ur Amphetamines Screen U Benzodiazepines Scrn Urine Cocaine Screen U Marijuana (THC) Screen Drugs of Abuse Note Plasma/Serum Alcohol < 0.01 (0-0.07) % SARS-CoV-2 (PCR) (Negative) 11/25/21 11/26/21 Range/Units Unknown 11:05 WBC (4.5-11.0) K/mm3 RBC (3.65-5.03) M/mm3 Hgb (11.8-15.2) gm/dl Hct (35.5-45.6) % MCV (84-94) fl MCH (28-32) pg MCHC (32-34) % RDW (13.2-15.2) % Plt Count (140-440) K/mm3 Lymph % (Auto) (13.4-35.0) % Storey % (Auto) (0.0-7.3) % Eos % (Auto) (0.0-4.3) % Baso % (Auto) (0.0-1.8) % Lymph # (Auto) (1.2-5.4) K/mm3 [place]y # (Auto) (0.0-0.8) K/mm3 Eos # (Auto) (0.0-0.4) K/mm3 Baso # (Auto) (0.0-0.1) K/mm3 Seg Neutrophils % (40.0-70.0) % Seg Neutrophils # (1.8-7.7) K/mm3 Sodium (137-145) mmol/L Potassium (3.6-5.0) mmol/L Chloride (98-107) mmol/L Carbon Dioxide (22-30) mmol/L Anion Gap mmol/L BUN (9-20) mg/dL Creatinine (0.8-1.3) mg/dL Estimated GFR ml/min BUN/Creatinine Ratio % Glucose (75-100) mg/dL Calcium (8.4-10.2) mg/dL Total Bilirubin (0.1-1.2) mg/dL AST (5-40) units/L ALT (7-56) units/L Alkaline Phosphatase (35-129) units/L Total Protein (6.3-8.2) g/dL Albumin (3.9-5) g/dL Albumin/Globulin Ratio % Urine Color (Yellow) Urine Turbidity (Clear) Urine pH (5.0-7.0) Ur Specific [place] (1.003-1.030) Urine Protein (Negative) mg/dL Urine Glucose (UA) (Negative) mg/dL Urine Ketones (Negative) mg/dL Urine Blood (Negative) Urine Nitrite (Negative) Urine Bilirubin (Negative) Urine Urobilinogen (<2.0) mg/dL Ur Leukocyte Esterase (Negative) Urine WBC (Auto) (0.0-6.0) /HPF Urine RBC (Auto) (0.0-6.0) /HPF Urine Bacteria (Auto) (Negative) /HPF Urine Yeast (Budding) /HPF Salicylates (2.8-20.0) mg/dL Urine Opiates Screen Negative Urine Methadone Screen Negative Acetaminophen (10.0-30.0) ug/mL Ur Barbiturates Screen Negative Valproic Acid (50-100) ug/mL Ur Phencyclidine Scrn Negative Ur Amphetamines Screen Negative U Benzodiazepines Scrn Negative Urine Cocaine Screen Negative U Marijuana (THC) Screen Negative Drugs of Abuse Note Disclamer Plasma/Serum Alcohol (0-0.07) % SARS-CoV-2 (PCR) Negative (Negative)
--- NOTE | 2021-11-26 13:01 | Consultation ---
History of Present Illness - Reason for Consult Consult date: 11/26/21 Reason for consult: paranoia - History of Present Psychiatric Illness The patient was seen today. He was brought to the ER after jumping out of the car and running down the street. During my evaluation the patient is calm and cooperative. He's a/o x 3. The patient says he has a history of paranoid schizophrenia. He says he "gets paranoid sometimes." The patient says he's been feeling like this for about a year. He says he did discuss this with his psychiatrist, and his doctor suggested that he have his blood drawn. The patient denies SI/HI or hallucinations, he says "it's none of that. I just get paranoid sometimes." I spoke to mom to get collateral. The mom is very versed on the patient's medications and mental health. Mom says the patient takes Clozaril, Depakote ER and Ingrezza. She says these medications are the only meds that pretty much work for the patient overall. She says the patient has been on pretty much all the medications out there with no success. She says the patient needs something prn. I recommend Klonopin as needed to her. Mom says the patient was on klonpin and it works very well for him, she says but he became addicted to it and it took three years to get him off. I suggested olanzapine prn in addition to the clozaril. Mom is in agreement with this. She says inpatient treatment is absolutely not the best course of action for Jeremy, because she states he's spent a period of "2 years in inpatient on and off." She says he stayed in [place] for 3 months, and they still had to call her to ask her what to do about her son. The mother says she's well capable of managing Jeremy's mental illness. She says he has an appointment with his outpatient psychiatrist on December 09. She says she will discuss the changes with him. Discussed this plan with Dr. Mckeon who agrees. PSYCH HISTORY Diagnoses: Schizophrenia Suicide attempts or Self-harm behavior: No Prior psychiatric hospitalizations: Yes Substance Abuse history: Denies Previous psychiatric medications tried: Zyprexa and propranolol Outpatient treatment: Yes PAST MEDICAL HISTORY: Family Psychiatric History: None reported or documented SOCIAL HISTORY Marital Status: Single Living Arrangements: custodial Employment Status: Unemployed Access to guns/weapons: Denies Education: high school History of Abuse: Denies Legal History: none MENTAL STATUS EXAMINATION General Appearance and Behavior: Age appropriate, good hygiene, wearing appropriate clothes, calm, cooperative, polite Cooperation: Participating Psychomotor Behavior: unremarkable and within normal limits Mood: better Affect and affective range: congruent with mood Thought Process: circumstantial, responding to internal stimuli Thought Content: Denies Speech: Normal volume, Regular rate and rhythm, Suicidal Ideation: Denies Homicidal Ideation: Denies Hallucinations: Denies Delusions: None elicited Impulse Control: Limited Insight and Judgment: Limited insight and poor judgment, Memory: Normal Attention: attentive Orientation: Alert, oriented Assessment and Plan (1) Schizophrenia Treatment Plan d/c 1013 Olanzapine 5mg po prn psychosis Please give the patient first dose prior to discharge Continue home medications PSYCHOTHERAPY: Supportive psychotherapy provided MEDICAL: Per primary team DELIRIUM PRECAUTIONS: Please re-orient patient frequently, keep lights on during the day, and minimize benzodiazepines and opiates as these medications could worsen patient's confusion. TRANSPLANT REGISTERED NURSE: Per medical team DISPOSITION: Do not recommend acute psychiatric inpatient treatment. Will sign off. Thank you for the consult. Case staffed with Dr. Mckeon Medications and Allergies Allergies Allergy/AdvReac Type Severity Reaction Status Date / Time No Known Allergies Allergy Verified 06/16/13 15:43 Home Medications Medication Instructions Recorded Confirmed Last Taken Type Benztropine [Cogentin] 1 mg PO HS 06/16/13 11/16/21 06/15/13 History Olanzapine [Zyprexa] 10 mg PO QAM 06/16/13 11/16/21 06/16/13 History Olanzapine [Zyprexa] 20 mg PO HS 06/16/13 11/16/21 11/07/21 History PARoxetine [Paxil] 20 mg DAILY 06/16/13 11/16/21 06/16/13 History Vit B12/Levomefolate/Vit B6/B2 1 tab DAILY 06/16/13 11/16/21 06/16/13 History [Cerefolin Caplet] clonazePAM [KlonoPIN] 0.5 mg PO BID 06/16/13 11/16/21 06/16/13 History Doxepin [SINEquan] 10 mg PO QHS #30 capsule 11/12/21 11/16/21 Unknown Rx OLANzapine [ZyPREXA] 10 mg PO DAILY #30 tablet 11/12/21 11/16/21 Unknown Rx PARoxetine [Paxil] 10 mg PO DAILY #30 tablet 11/12/21 11/16/21 Unknown Rx Clozapine 800 mg PO QHS 11/16/21 11/16/21 11/14/21 History 800 mg Depakote ER 1,750 mg PO QHS 11/16/21 11/16/21 11/07/21 History Active Meds: Active Medications Lorazepam (Lorazepam 2 Mg/Ml Vial) 1 mg IV ONCE PRN PRN Reason: Agitation Last Admin: 11/25/21 15:00 Dose: 1 mg Mental Status Exam - Vital signs Last Vital Signs Temp 97.2 F L 11/26/21 10:05 Pulse 89 11/26/21 10:05 Resp 18 11/26/21 10:05 BP 134/83 11/26/21 10:05 Pulse Ox 97 11/26/21 10:05 Results Result Diagrams: 11/25/21 13:39 11/25/21 13:39 Abnormal lab results 11/25/21 11/25/21 11/25/21 Range/Units 13:39 13:39 13:39 RBC 5.05 H (3.65-5.03) M/mm3 Hgb 11.6 L (11.8-15.2) gm/dl MCV 73 L (84-94) fl MCH 23 L (28-32) pg MCHC 31 L (32-34) % [place] % (Auto) 8.3 H (0.0-7.3) % Lymph # (Auto) 0.9 L (1.2-5.4) K/mm3 Seg Neutrophils % 77.1 H (40.0-70.0) % Urine pH (5.0-7.0) Salicylates < 0.3 L (2.8-20.0) mg/dL Acetaminophen 5.0 L (10.0-30.0) ug/mL 11/25/21 Range/Units Unknown RBC (3.65-5.03) M/mm3 Hgb (11.8-15.2) gm/dl MCV (84-94) fl MCH (28-32) pg MCHC (32-34) % [place] % (Auto) (0.0-7.3) % Lymph # (Auto) (1.2-5.4) K/mm3 Seg Neutrophils % (40.0-70.0) % Urine pH 8.0 H (5.0-7.0) Salicylates (2.8-20.0) mg/dL Acetaminophen (10.0-30.0) ug/mL All other labs normal.
[2021-11-26] MEDS: LORazepam 2 MG/ML VIAL IV PRN (13:37)
[2021-11-26 20:39] VITALS: BP 131/75
== END 2021-11-26 19:31 | disposition home or self-care (01) ==
LOC: EEVIPCON 12:39 → ED 12:39
DX: F20.9 Schizophrenia, unspecified (principal); S40.011A Contusion of right shoulder, initial encounter; Z20.822 Contact with and (suspected) exposure to COVID-19; X58.XXXA Exposure to other specified factors, initial encounter; Y93.89 Activity, other specified; Y92.89 Other specified places as the place of occurrence of the external cause; Y99.8 Other external cause status; F10.20 Alcohol dependence, uncomplicated
CPT/HCPCS: 36415; 73030; 80053; 80164; 80307; 81001; 85025; 96372; 96374; 99285; J1200; J1630; J2060; U0003; 80320; G0480

== ENCOUNTER 2021-12-06 15:30 | Emergency (ER) | payer MEDICAID ==
--- NOTE | 2021-12-06 16:14 | Emergency Department Report ---
ED Psych HPI - General Chief Complaint: Psych Stated Complaint: PSYCHOTIC BREAK Time Seen by Provider: 12/06/21 16:00 Source: patient, EMS Mode of arrival: Ambulatory - History of Present Illness Initial Comments: 26-year-old male with a history of schizophrenia and bipolar who now presents with anxiety and depression that is been going on for a while. Patient reported that he has not been taking his medication for a while. When asked to be specific he said he does not know. Patient denies any fall or trauma to the brain. Patient also reports some suicidal ideation without any specific plan. No other modifying or associated factors reported. - Related Data Home Medications Medication Instructions Recorded Confirmed Last Taken Benztropine [Cogentin] 1 mg PO HS 06/16/13 11/16/21 06/15/13 Olanzapine [Zyprexa] 10 mg PO QAM 06/16/13 11/16/21 06/16/13 Olanzapine [Zyprexa] 20 mg PO HS 06/16/13 11/16/21 11/07/21 PARoxetine [Paxil] 20 mg DAILY 06/16/13 11/16/21 06/16/13 Vit B12/Levomefolate/Vit B6/B2 1 tab DAILY 06/16/13 11/16/21 06/16/13 [Cerefolin Caplet] clonazePAM [KlonoPIN] 0.5 mg PO BID 06/16/13 11/16/21 06/16/13 Clozapine 800 mg PO QHS 11/16/21 11/16/21 11/14/21 800 mg Depakote ER 1,750 mg PO QHS 11/16/21 11/16/21 11/07/21 Previous Rx's Medication Instructions Recorded Last Taken Type Doxepin [SINEquan] 10 mg PO QHS #30 capsule 11/12/21 Unknown Rx OLANzapine [ZyPREXA] 10 mg PO DAILY #30 tablet 11/12/21 Unknown Rx PARoxetine [Paxil] 10 mg PO DAILY #30 tablet 11/12/21 Unknown Rx OLANZapine [Olanzapine] 5 mg PO DAILY PRN #30 11/26/21 Unknown Rx Allergies Allergy/AdvReac Type Severity Reaction Status Date / Time No Known Allergies Allergy Verified 12/06/21 15:34 ED Review of Systems ROS: Stated complaint: PSYCHOTIC BREAK Other details as noted in HPI Comment: All other systems reviewed and negative Psychiatric: anxiety, depression, suicidal thoughts. denies: homicidal thoughts ED Past Medical Hx - Past Medical History Hx Psychiatric Treatment: Yes (schizophrenia/bipolar) Additional medical history: depression - Social History Smoking Status: Never Smoker Substance Use Type: None (Denies illicit drug), Alcohol (Frequently) - Medications Home Medications: Home Medications Medication Instructions Recorded Confirmed Last Taken Type Benztropine [Cogentin] 1 mg PO HS 06/16/13 11/16/21 06/15/13 History Olanzapine [Zyprexa] 10 mg PO QAM 06/16/13 11/16/21 06/16/13 History Olanzapine [Zyprexa] 20 mg PO HS 06/16/13 11/16/21 11/07/21 History PARoxetine [Paxil] 20 mg DAILY 06/16/13 11/16/21 06/16/13 History Vit B12/Levomefolate/Vit B6/B2 1 tab DAILY 06/16/13 11/16/21 06/16/13 History [Cerefolin Caplet] clonazePAM [KlonoPIN] 0.5 mg PO BID 06/16/13 11/16/21 06/16/13 History Doxepin [SINEquan] 10 mg PO QHS #30 capsule 11/12/21 11/16/21 Unknown Rx OLANzapine [ZyPREXA] 10 mg PO DAILY #30 tablet 11/12/21 11/16/21 Unknown Rx PARoxetine [Paxil] 10 mg PO DAILY #30 tablet 11/12/21 11/16/21 Unknown Rx Clozapine 800 mg PO QHS 11/16/21 11/16/21 11/14/21 History 800 mg Depakote ER 1,750 mg PO QHS 11/16/21 11/16/21 11/07/21 History OLANZapine [Olanzapine] 5 mg PO DAILY PRN #30 11/26/21 Unknown Rx ED Physical Exam - General Limitations: No Limitations, Other General appearance: alert, in no apparent distress - Head Head exam: Present: normal inspection - Eye Eye exam: Present: normal appearance Pupils: Present: normal accommodation - ENT ENT exam: Present: normal exam, normal orophraynx, mucous membranes moist - Neck Neck exam: Present: normal inspection, full ROM. Absent: tenderness, meningismus - Respiratory Respiratory exam: Present: normal lung sounds bilaterally. Absent: respiratory distress, accessory muscle use - Cardiovascular Cardiovascular Exam: Present: regular rate, normal rhythm, normal heart sounds - GI/Abdominal GI/Abdominal exam: Present: soft - Extremities Exam Extremities exam: Present: normal inspection. Absent: tenderness - Back Exam Back exam: Absent: tenderness - Neurological Exam Neurological exam: Present: alert, oriented X3 - Psychiatric Psychiatric exam: Present: flat affect, manic - Skin Skin exam: Present: warm, normal color ED Course Vital Signs 12/06/21 15:32 Temperature 97.9 F Pulse Rate 100 H Blood Pressure 147/90 [Left] O2 Sat by Pulse 98 Oximetry - Reevaluation(s) Reevaluation #1: 12/06/21 16:12 Here with suicidal ideation without any plan also noted to be anxious--in the patient with history of schizophrenia and bipolar--differentials could be among but not limited to acute psychosis, suicidal ideation, thyroid or electrolyte derangement, so to rule out the above-mentioned we will order routine lab includ ing CBC, CMP, thyroid profile, urinalysis, alcohol level and drug screen for any correctable cause. In the meantime we will continue to monitor and treat symptoms accordingly. Critical care attestation.: If time is entered above; I have spent that time in minutes in the direct care of this critically ill patient, excluding procedure time. ED Disposition Clinical Impression: Acute psychosis, Suicidal ideation Disposition: 30 STILL A PATIENT Does the pt Need Aspirin: No Condition: Stable
[2021-12-06 17:41] LABS: Bilirubin,Urine NEG (Negative); Blood,Urine NEG (Negative); Color,Urine Yellow (Yellow); Mucus,Urine FEW /HPF; Protein,Urine <15 mg/dL mg/dL (Negative); WBC,Urine < 1.0 /HPF (0.0-6.0)
[2021-12-06 17:50] LABS: Amphetamine Screen,Urine Negative; Benzodiazepines Screen,Urine Negative; Cannabinoid Screen,Urine Negative; Methadone Screen,Urine Negative; Opiate Screen,Urine Negative
[2021-12-06 18:08] LABS: Basophils # (Auto) 0.1 K/mm3 (0.0-0.1); Eosinophils % (Auto) 0.4 % (0.0-4.3); Lymphocytes # (Auto) 2.2 K/mm3 (1.2-5.4); Mean Corpuscular HGB Conc 30 % (32-34); Mean Corpuscular Volume 75 fl (84-94); Monocytes # (Auto) 0.6 K/mm3 (0.0-0.8); Monocytes % (Auto) 8.7 % (0.0-7.3); Platelet Count 193 K/mm3 (140-440); Red Blood Count 5.29 M/mm3 (3.65-5.03); Red Cell Distribution Width 15.3 % (13.2-15.2)
[2021-12-06 18:14] LABS: Hematocrit 39.8 % (35.5-45.6); Hemoglobin 11.9 gm/dl (11.8-15.2)
[2021-12-06 18:22] LABS: Alanine Aminotransferase 18 units/L (7-56); Albumin 4.7 g/dL (3.9-5); BUN/Creatinine Ratio 16; Blood Urea Nitrogen 14 mg/dL (9-20); Calcium 9.7 mg/dL (8.4-10.2); Hemolysis Index 27
[2021-12-06] MEDS ORDERED: ZIPRASIDONE MESYLATE 20 MG VIAL IM ONE ×2 (19:25→19:30)
[2021-12-07] MEDS: ZIPRASIDONE MESYLATE 20 MG VIAL IM PRN ×2 (00:58→15:00)
--- NOTE | 2021-12-07 11:18 | Event Note ---
Date: 12/07/21 Patient is 26 years old male with frequent admission to the emergency room for acute psychosis. Patient admitted yesterday with acute psychosis. Overnight patient very agitated and required Geodon. Vital signs reviewed and is unremarkable. Labs reviewed and is unremarkable. Waiting for inpatient psychiatric admission.
--- NOTE | 2021-12-07 15:38 | Consultation ---
History of Present Illness - Reason for Consult Consult date: 12/07/21 Reason for consult: MHE - Chief Complaint Chief complaint: My day told me to go to the hospital - History of Present Psychiatric Illness The patient is a 26yo AAM with history of Paranoid Schizophrenia on Clozapine. He is grossly disorganized, psychotic and unable to engage in meaningful conversation. He is not compliant with his medications, reported to be depressed and anxious. Medications and Allergies Allergies Allergy/AdvReac Type Severity Reaction Status Date / Time No Known Allergies Allergy Verified 12/06/21 15:34 Home Medications Medication Instructions Recorded Confirmed Last Taken Type Benztropine [Cogentin] 1 mg PO HS 06/16/13 11/16/21 06/15/13 History Olanzapine [Zyprexa] 10 mg PO QAM 06/16/13 11/16/21 06/16/13 History Olanzapine [Zyprexa] 20 mg PO HS 06/16/13 11/16/21 11/07/21 History PARoxetine [Paxil] 20 mg DAILY 06/16/13 11/16/21 06/16/13 History Vit B12/Levomefolate/Vit B6/B2 1 tab DAILY 06/16/13 11/16/21 06/16/13 History [Cerefolin Caplet] clonazePAM [KlonoPIN] 0.5 mg PO BID 06/16/13 11/16/21 06/16/13 History Doxepin [SINEquan] 10 mg PO QHS #30 capsule 11/12/21 11/16/21 Unknown Rx OLANzapine [ZyPREXA] 10 mg PO DAILY #30 tablet 11/12/21 11/16/21 Unknown Rx PARoxetine [Paxil] 10 mg PO DAILY #30 tablet 11/12/21 11/16/21 Unknown Rx Clozapine 800 mg PO QHS 11/16/21 11/16/21 11/14/21 History 800 mg Depakote ER 1,750 mg PO QHS 11/16/21 11/16/21 11/07/21 History OLANZapine [Olanzapine] 5 mg PO DAILY PRN #30 11/26/21 Unknown Rx Active Meds: Active Medications Ziprasidone (Ziprasidone Mesylate 20 Mg Vial) 10 mg IM Q2H PRN PRN Reason: Agitation Last Admin: 12/07/21 00:58 Dose: 10 mg Past psychiatric history - past Psychiatric treatment and history Psych: Schizophrenia - Social History Social history: single, lives with family Mental Status Exam - Vital signs Last Vital Signs Temp 98.7 F 12/07/21 09:57 Pulse 96 H 12/07/21 09:57 Resp 14 12/07/21 09:57 BP 146/90 12/07/21 09:57 Pulse Ox 100 12/07/21 09:57 - Exam Orientation: person Affect: depressed, anxious, agitated Mood: congruent with affect Thought content: delusions, paranoia Thought Process: Disorganized Perceptions: auditory, hallucinations Speech: normal rate and pattern Concentration: unable to pay attention Motor activity: agitated Level of consciousness: alert Interaction: uncooperative Results Result Diagrams: 12/06/21 17:26 12/06/21 17:26 Abnormal lab results 12/06/21 12/06/21 12/06/21 Range/Units 17:26 17:26 17:26 RBC 5.29 H (3.65-5.03) M/mm3 MCV 75 L (84-94) fl MCH 23 L (28-32) pg MCHC 30 L (32-34) % RDW 15.3 H (13.2-15.2) % [place] % (Auto) 8.7 H (0.0-7.3) % Glucose (75-100) mg/dL Salicylates < 0.3 L (2.8-20.0) mg/dL Acetaminophen 5.0 L (10.0-30.0) ug/mL 12/06/21 Range/Units 17:26 RBC (3.65-5.03) M/mm3 MCV (84-94) fl MCH (28-32) pg MCHC (32-34) % RDW (13.2-15.2) % [place] % (Auto) (0.0-7.3) % Glucose 111 H (75-100) mg/dL Salicylates (2.8-20.0) mg/dL Acetaminophen (10.0-30.0) ug/mL All other labs normal. Assessment and Plan - Psychiatric problem (1) Paranoid schizophrenia Current Visit: Yes Status: Acute (2) Disorganized schizophrenia Current Visit: Yes Status: Acute plan to address problem: Treatment Plan Continue 1013 Olanzapine 5mg po prn psychosis Continue home medications PSYCHOTHERAPY: Supportive psychotherapy provided MEDICAL: Per primary team DELIRIUM PRECAUTIONS: Please re-orient patient frequently, keep lights on during the day, and minimize benzodiazepines and opiates as these medications could worsen patient's confusion. CAREER CONSULTANT: Per medical team DISPOSITION: Acute psychiatric inpatient treatment recommended Will follow. Thank you for the consult.
[2021-12-08] MEDS ORDERED: ZIPRASIDONE MESYLATE 20 MG VIAL IM PRN (07:47)
[2021-12-08] MEDS: ZIPRASIDONE MESYLATE 20 MG VIAL IM PRN (08:12)
--- NOTE | 2021-12-08 11:23 | Event Note ---
Date: 12/08/21 Patient is 26 years old with history of schizophrenia admitted to the ER for acute psychosis. Patient still pacing in the room with disorganized thoughts. Vital signs stable. Waiting for inpatient psychiatric placement.
--- NOTE | 2021-12-08 13:23 | Progress Note ---
Subjective - Reason for Consult Consult date: 12/08/21 Reason for consult: MHE - Chief Complaint Chief complaint: History of Present Psychiatric Illness The patient is a 26yo AAM with history of Paranoid Schizophrenia on Clozapine. He is grossly disorganized, psychotic and unable to engage in meaningful conversation. He is not compliant with his medications, reported to be depressed and anxious. Progress: 12/08/21: Patient was seen by me today. He is restless, agitated, disorganized, emotionally labile, crying then laughing inappropriately but very pleasant and respectful. He endorses auditory hallucinations, conversing with unseen individuals, appears to be severely distressed by whatever he is experiencing. Nursing staff reports that he compliant with medications and no aggressive behaviors. Mental Status Exam - Vital signs Last Vital Signs Temp 98.5 F 12/08/21 09:43 Pulse 113 H 12/08/21 09:43 Resp 20 12/08/21 09:43 BP 132/70 12/08/21 09:43 Pulse Ox 97 12/08/21 09:43 - Exam Orientation: place, person Affect: anxious, agitated Mood: congruent with affect Thought content: delusions, paranoia Thought Process: Loose Associations, Disorganized Perceptions: hallucinations Speech: incoherent Concentration: unable to pay attention Motor activity: restless, agitated Level of consciousness: alert Sleep Symptoms: Difficulty Falling Asleep Interaction: cooperative, pleasant Assessment and Plan - Patient Problems (1) Paranoid schizophrenia Current Visit: Yes Status: Acute (2) Disorganized schizophrenia Current Visit: Yes Status: Acute Plan to address problem: Treatment Plan Continue 1013 Olanzapine 5mg po prn psychosis Gradually re-introduce home medications PSYCHOTHERAPY: Supportive psychotherapy provided MEDICAL: Per primary team DELIRIUM PRECAUTIONS: Please re-orient patient frequently, keep lights on during the day, and minimize benzodiazepines and opiates as these medications could worsen patient's confusion. FILING OR REGISTRY CLERK: Per medical team DISPOSITION: Acute psychiatric inpatient treatment recommended Will follow. Thank you for the consult.
[2021-12-08] MEDS: OLANzapine ZYDIS 5 MG TAB PO SCH ×2 (14:31→23:00)
[2021-12-08] MEDS: FLUoxetine 20 MG CAP PO SCH (14:31)
[2021-12-08] MEDS: DIVALPROEX ER 500 MG TAB PO SCH ×2 (14:31→23:00)
[2021-12-09] MEDS: DIVALPROEX ER 500 MG TAB PO SCH (10:04)
[2021-12-09] MEDS: OLANzapine ZYDIS 5 MG TAB PO SCH (10:04)
[2021-12-09] MEDS: FLUoxetine 20 MG CAP PO SCH (10:04)
--- NOTE | 2021-12-09 17:12 | Emergency Department Report ---
Blank Doc - Documentation Documentation: Chart reviewed 26-year-old male with psychosis currently awaiting inpatient transfer. Tolerating p.o. medications with intermittent refusal
--- NOTE | 2021-12-09 18:22 | Progress Note ---
Subjective - Reason for Consult Consult date: 12/09/21 Reason for consult: psychosis - Chief Complaint Chief complaint: The patient was seen today. He is in the seclusion room. The patient is boxing the air, and talking out loud to people not there. I try to get his attention through the glass but he doesn't acknowledge me. Mental Status Exam Unable to fully complete Assessment and Plan (1) Paranoid schizophrenia Current Visit: Yes Status: Acute (2) Disorganized schizophrenia Current Visit: Yes Status: Acute Treatment Plan Continue 1013 Increase Olanzapine 7.5mg po prn psychosis Gradually re-introduce home medications PSYCHOTHERAPY: Supportive psychotherapy provided MEDICAL: Per primary team DELIRIUM PRECAUTIONS: Please re-orient patient frequently, keep lights on during the day, and minimize benzodiazepines and opiates as these medications could worsen patient's confusion. SENIOR REGULATORY AFFAIRS SPECIALIST: Per medical team DISPOSITION: Acute psychiatric inpatient treatment recommended Will follow. Thank you for the consult. Case staffed with Dr. Mckeon Mental Status Exam - Vital signs Last Vital Signs Temp 98.4 F 12/08/21 20:10 Pulse 100 H 12/08/21 20:10 Resp 18 12/08/21 20:10 BP 131/76 12/08/21 20:10 Pulse Ox 99 12/08/21 20:10
[2021-12-10] MEDS: FLUoxetine 20 MG CAP PO SCH (10:19)
[2021-12-10] MEDS: DIVALPROEX ER 500 MG TAB PO SCH ×2 (10:20→22:23)
--- NOTE | 2021-12-10 11:48 | Progress Note ---
Subjective - Reason for Consult Consult date: 12/10/21 Reason for consult: psychosis - Chief Complaint Chief complaint: The patient was seen today. He is much better and appears much calmer. He is eating breakfast. He says he came in for paranoia but feels a lot better. The patient denies SI/HI or hallucinations. I ask the nurse to bring him out of seclusion and see how he does. I spoke to mom, who left her number for me to call. Mom says Dr. Carreon is who the patient sees, and states that she spoke to Dr. Carreon who says the patient should have been at [facility] because he has privileges there. She says Dr. Carreon says he has a plan for the patient. Mom wants to take the patient home. I advised her that the nurse says the patient was pacing earlier, and still appeared paranoid after he was taken out of seclusion. The nurse says the patient was much calmer after given scheduled med. I called mom back and informed her that I would reconsider clearing the patient tomorrow. Mom agrees with plan, but is concerned about the patient not getting his clozapine. I advised her to bring the patient's medication to the hospital for pharmacy to verify it. I cut clozaril in half since mom says the patient has been off it a week. Also ordered CBC. Mental Status Exam Unable to fully complete Assessment and Plan (1) Paranoid schizophrenia Current Visit: Yes Status: Acute (2) Disorganized schizophrenia Current Visit: Yes Status: Acute Treatment Plan Continue 1013 Olanzapine 7.5mg po prn psychosis Restarted Clozaril at 400mg po qhs CBC Gradually re-introduce home medications PSYCHOTHERAPY: Supportive psychotherapy provided MEDICAL: Per primary team DELIRIUM PRECAUTIONS: Please re-orient patient frequently, keep lights on during the day, and minimize benzodiazepines and opiates as these medications could worsen patient's confusion. DOCTOR OF NURSING PRACTICE: Per medical team DISPOSITION: Acute psychiatric inpatient treatment recommended Will follow. Thank you for the consult. Case staffed with Dr. Mckeon Mental Status Exam - Vital signs Last Vital Signs Temp 98.2 F 12/10/21 09:54 Pulse 94 H 12/10/21 09:54 Resp 18 12/10/21 09:54 BP 117/67 12/10/21 09:54 Pulse Ox 99 12/10/21 09:54
--- NOTE | 2021-12-10 13:09 | Emergency Department Report ---
Blank Doc - Documentation Documentation: I had a [id number] encounter with the patient. Patient is a 26-year-old male with history of schizophrenia. Patient is currently on a 1013 and remains on 1013 awaiting improvement in his paranoia. Patient was also seen by psychiatry today. We will continue to monitor.
[2021-12-10] MEDS ORDERED: CLOZAPINE PO SCH (22:00)
[2021-12-10] MEDS ORDERED: CLOZAPINE 400 MG PO SCH (22:00)
[2021-12-10] MEDS: OLANzapine ZYDIS 5 MG TAB PO SCH (22:24)
[2021-12-10 23:45] LABS: Basophils % (Auto) 0.8 % (0.0-1.8); Eosinophils % (Auto) 0.6 % (0.0-4.3); Lymphocytes # (Auto) 2.5 K/mm3 (1.2-5.4); Lymphocytes % (Auto) 41.5 % (13.4-35.0); Mean Corpuscular HGB Conc 30 % (32-34); Mean Corpuscular Volume 75 fl (84-94); Monocytes # (Auto) 0.7 K/mm3 (0.0-0.8); Monocytes % (Auto) 11.9 % (0.0-7.3); Platelet Count 144 K/mm3 (140-440); Red Blood Count 4.96 M/mm3 (3.65-5.03); Red Cell Distribution Width 15.1 % (13.2-15.2)
[2021-12-10 23:46] LABS: Hematocrit 37.1 % (35.5-45.6); Hemoglobin 11.1 gm/dl (11.8-15.2)
[2021-12-11] MEDS: OLANzapine ZYDIS 5 MG TAB PO SCH ×3 (09:59→22:15)
[2021-12-11] MEDS: DIVALPROEX ER 500 MG TAB PO SCH ×3 (10:00→22:15)
[2021-12-11] MEDS: FLUoxetine 20 MG CAP PO SCH (10:01)
--- NOTE | 2021-12-11 10:02 | Progress Note ---
Subjective - Reason for Consult Consult date: 12/11/21 Reason for consult: psychosis - Chief Complaint Chief complaint: The patient was seen today. He is in the seclusion room. Security says he was pacing and paranoid, and the patient requested to be placed there. The patient today denies being paranoid. He also denies SI/HI or hallucinations of any kind. Spoke with mom yesterday, who doesn't want the patient to have inpatient treatment, because she states he has a solid outpatient plan. Dr. Mckeon consulted who wants the patient to continue with inpatient treatment. Also informed mom yesterday to bring the patient's Clozaril to the hospital so that he can continue it while here. Mental Status Exam Unable to fully complete Assessment and Plan (1) Paranoid schizophrenia Current Visit: Yes Status: Acute (2) Disorganized schizophrenia Current Visit: Yes Status: Acute Treatment Plan Continue 1013 Olanzapine 7.5mg po prn psychosis Restarted Clozaril at 400mg po qhs CBC Gradually re-introduce home medications PSYCHOTHERAPY: Supportive psychotherapy provided MEDICAL: Per primary team DELIRIUM PRECAUTIONS: Please re-orient patient frequently, keep lights on during the day, and minimize benzodiazepines and opiates as these medications could worsen patient's confusion. WELDER GAS: Per medical team DISPOSITION: Acute psychiatric inpatient treatment recommended Will follow. Thank you for the consult. Case staffed with Dr. Mckeon Mental Status Exam - Vital signs Last Vital Signs Temp 98.6 F 12/10/21 20:30 Pulse 108 H 12/10/21 20:30 Resp 18 12/10/21 20:30 BP 137/88 12/10/21 20:30 Pulse Ox 99 12/10/21 21:00
--- NOTE | 2021-12-12 11:46 | Progress Note ---
Subjective - Reason for Consult Consult date: 12/12/21 Reason for consult: Psychosis - Chief Complaint Chief complaint: The patient was seen today. He is calm and cooperative. He reports doing well. No agitation reported. Spoke with Jeremy's mother and updated her about the discharge plan. Pt will return to caregiver, Coni @ [phone] Mental Status Exam Unable to fully complete Assessment and Plan (1) Paranoid schizophrenia Current Visit: Yes Status: Acute (2) Disorganized schizophrenia Current Visit: Yes Status: Acute Treatment Plan Continue 1013 Restarted Clozaril at 400mg po qhs PSYCHOTHERAPY: Supportive psychotherapy provided MEDICAL: Per primary team DELIRIUM PRECAUTIONS: Please re-orient patient frequently, keep lights on during the day, and minimize benzodiazepines and opiates as these medications could worsen patient's confusion. [employer]: Per medical team DISPOSITION: Do not recommend psychiatric inpatient treatment recommended. Will sign off. Thank you for the consult. Case staffed with Dr. Mckeon Mental Status Exam - Vital signs Last Vital Signs Temp 98.8 F 12/11/21 20:31 Pulse 72 12/11/21 20:31 Resp 16 12/11/21 20:31 BP 124/78 12/11/21 20:31 Pulse Ox 100 12/11/21 20:31
[2021-12-12] MEDS: DIVALPROEX ER 500 MG TAB PO SCH (22:00)
[2021-12-12] MEDS: OLANzapine ZYDIS 5 MG TAB PO SCH (22:00)
[2021-12-13] MEDS: DIVALPROEX ER 500 MG TAB PO SCH ×2 (09:52→22:00)
[2021-12-13] MEDS: FLUoxetine 20 MG CAP PO SCH (09:52)
[2021-12-13] MEDS: OLANzapine ZYDIS 5 MG TAB PO SCH ×2 (09:52→22:00)
[2021-12-14] MEDS: FLUoxetine 20 MG CAP PO SCH ×2 (10:21→10:22)
[2021-12-14] MEDS: DIVALPROEX ER 500 MG TAB PO SCH ×3 (10:21→22:00)
[2021-12-14] MEDS: OLANzapine ZYDIS 5 MG TAB PO SCH ×3 (10:21→22:00)
[2021-12-15] MEDS: DIVALPROEX ER 500 MG TAB PO SCH ×2 (12:55→22:01)
[2021-12-15] MEDS: OLANzapine ZYDIS 5 MG TAB PO SCH ×2 (12:55→22:02)
[2021-12-15] MEDS: FLUoxetine 20 MG CAP PO SCH (12:55)
[2021-12-16] MEDS: DIVALPROEX ER 500 MG TAB PO SCH ×2 (10:51→22:31)
[2021-12-16] MEDS: FLUoxetine 20 MG CAP PO SCH (10:51)
[2021-12-16] MEDS: OLANzapine ZYDIS 5 MG TAB PO SCH (22:31)
[2021-12-16 23:44] VITALS: BP 124/70
[2021-12-17] MEDS: FLUoxetine 20 MG CAP PO SCH (09:38)
[2021-12-17] MEDS: OLANzapine ZYDIS 5 MG TAB PO SCH (09:38)
[2021-12-17] MEDS: DIVALPROEX ER 500 MG TAB PO SCH (09:38)
== END 2021-12-17 13:09 | disposition home or self-care (01) ==
LOC: ED 15:30 → EEVIPCON 15:30 → ED 12-17 13:09
DX: F23 Brief psychotic disorder (principal); R45.851 Suicidal ideations; Z20.822 Contact with and (suspected) exposure to COVID-19
CPT/HCPCS: 36415; 80053; 80307; 81001; 84443; 85025; 96372; 99284; J3486; U0003; 80320; G0480